=== PATIENT | male | born 1950 | race African-American/Black ===

== ENCOUNTER 2019-06-02 15:45 | Emergency (ER) | payer OTHER ==
[~2019-06-02] VITALS: Ht 188 cm; Wt 90.7 kg
[2019-06-02] MEDS ORDERED: CIPRO250 M2 PO (16:13)
[2019-06-02] MEDS ORDERED: PROTONIX40 M2 PO (16:14)
[2019-06-02] MEDS ORDERED: ATORVASTATIN CA80 MG PO (16:15)
[2019-06-02] MEDS ORDERED: PLAVIX 75 MG TA75 MG PO (16:15)
[2019-06-02] MEDS ORDERED: ASA81BEC PO (16:16)
[2019-06-02] MEDS ORDERED: FLAGYL 250 MG250 MG PO (16:16)
[2019-06-02] MEDS ORDERED: CARVEDILOL12.5 MG PO (16:17)
[2019-06-02] MEDS ORDERED: CARVEDILOL25 MG PO (16:32)
[2019-06-02 16:46] VITALS: BP 170/106
== END 2019-06-02 17:01 | disposition home or self-care (01) ==
LOC: ER 15:45
DX: I10 Essential (primary) hypertension (principal); E78.00 Pure hypercholesterolemia, unspecified; K21.9 Gastro-esophageal reflux disease without esophagitis